=== PATIENT | female | born 2000 | race Caucasian/White ===

== ENCOUNTER 2024-11-28 10:04 | Outpatient (AMB) | payer OTHER, MEDICAID, SELFPAY ==
--- NOTE | 2024-11-28 10:12 | MHC.OFFVIS ---
Vital Signs 11/28/24 10:16 Height 4 ft 11.25 in Weight 200 lb 6.403 oz BMI 40.1 BP 130/70 Blood Pressure Location Rt brachial Position Sitting Pulse 100 Pulse Source Pulse Oximeter Pulse Oximetry (%) 99 Oxygen Delivery Method Room Air Intake Visit Reasons: multiple joint pain Intake Note: Patient presents for joint pain Accompanied by: Self / Same As Patient Allergies topiramate (From Topamax) Allergy (Intermediate, Verified 11/28/24 10:18) memory sulfa Allergy (Intermediate, Uncoded 11/28/24 10:18) Hives HPI HPI multiple joint pain: Details: New patient visit. Patient is concerned about POTS, EDS and chronic neck pain. She has been having having chronic neck pain for a year. It got worse with 3 months of treatment with chiropractor who performed manipulation. She was given a TENs unit to use at home but has not used it because she is not confident using it. She is starting PT and acupuncture next week. X-ray c spine 2 weeks ago did not reveal bone pathology per patient report but I do not have formal report. Tizanidine 2mg qhs helps with relaxation but she has pain daily. If she has a good day, she has increase pain at the end of the a work shift. She has nocturnal pain and wakes up crying. Heat pack and stretching helps. She is a College student. 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 She is unable to do shifts more than 5 hours. Increase pain with shifts up to 8 hours. Bruise easily since childhood. Has intermittent numbness in R arms, L leg and in between shoulder blades. She gets dizzy when reaching up and moving fast when getting up. She has increased her high duration and has been taking Hydrea drops, which has improved dizziness substantially. She also has chest pain with palpitations. She mentioned these symptoms per PCP who attributed them to anxiety. She was able to move her right hip in and out of the socket when she was young. She has had hx acute hip pain when she dances in musical. 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 Her mother manually adjusted her elbow. No hx of uterus prolapse. No . No valvular disease. She has orthostatic hypotension diagnosed at age 15 when she saw a accounts receivable coordinator. She has not followed up with accounts receivable coordinator after that visit. She wears compression stockings to work. Finger tips turn purple triggered by cold. It can occur in the top of her toes when she is sitting too long in one place and is cold. Self resolving. Onset childhood. She also has been experiencing fatigue, blurry vision occasionally in the morning, denies hearing loss, nosebleeds, dryness in nose, oral ulcers, dry mouth, dry eyes, pleurisy, heartburn, difficulty swallowing, urinary symptoms including frothy urine, rash, hair loss, miscarriages. She reports a PCP ordered labs and that she received a message that there is no concern for connective tissue disease. Hx of genetic liver condition. Medication list and medical problems reviewed with patient. Her mother has fibromyalgia. Physical Exam Vital Signs: Last Vital Signs Pulse 100 11/28/24 10:16 BP 130/70 11/28/24 10:16 Pulse Ox 99 11/28/24 10:16 Oxygen Delivery Method Room Air 11/28/24 10:16 BMI result Body Mass Index 40.1 Const Other: General: Comfortable CVS: RRR Respiratory: clear to auscultation bilaterally. Good respiratory effort Skin: No lesions seen, a couple of her tips of her toes have bluish tinge. She does not have digital ulcers. She has bruises on her legs. MSK: No tender joints. No synovitis. Normal range of motion of upper extremities, lower extremities and C-spine. She localizes her pain to 2 points on her trapezius and the base of her occiput but I am unable to reproduce the pain. Beighton score: ?Passive dorsiflexion and hyperextension of the fifth MCP joint beyond 90? 0 0 2. Passive apposition of the thumb to the flexor aspect of the forearm 0 0 3. Passive hyperextension of the elbow beyond 10? 0 0 4. Passive hyperextension of the knee beyond 10? 0 0 5. Active forward flexion of the trunk with the knees fully extended so that the palms of the hands rest flat on the floor 0 TOTAL 0 Assessment & Plan Assessment & Plan (1) Raynaud disease without gangrene: Comment: Conservatively managed. We discussed that her Raynaud's syndrome with onset during childhood is likely primary. She does not have any other signs or symptoms suggestive of systemic connective tissue disease at this time. Code(s): I73.00 - Raynaud's syndrome without gangrene Category: Medical Plan: Continue conservative management for Raynaud's phenomenon with warming and wearing gloves. We discussed importance of wearing appropriate clothing with keeping in mind to keep her core warm at all times to control Raynaud's syndrome. Follow up with PCP for evaluation and management of chest pain/palpitations. No further rheumatological workup is needed at this time Return to clinic PRN (2) Chronic neck pain: Comment: Likely due to myofascial strain based on location of pain at the base of the occipital and trapezius. We discussed conservative management. Code(s): M54.2 - Cervicalgia; G89.29 - Other chronic pain Category: Medical Plan: She will be starting physical therapy next week I have asked her to bring her TENs unit to PT for training to use at home Continue to apply heat to neck Continue tizanidine 2 mg q.h.s. prn neck pain. We discussed the issue of dependence that occurs with long-term muscle relaxer use. She will use it only when needed. PCP follow-up. Consider adjunct therapy with NSAID +/- acetaminophen if she has persistent pain Coding Level of Care Code New Pt Level 4 (88405) Diagnoses Raynaud disease without gangrene I73.00 Chronic neck pain M54.2; G89.29
[2024-11-28 10:16] VITALS: BP 130/70; PULSE 100; O2SAT 99; BMI 40.1
--- OUTSIDE RECORDS SUMMARY | 2024-11-28 11:52 | XMS_ITS | Clinical Summary ---
Author Organization [facility] Address [address] [place] [id number] Phone Care Team Providers Care Farrowing Manager Name Role Phone LeandroBarbara mason SEREEN Primary Care Provider [phone] Allergies Active Allergy Reactions Criticality Noted Date Comments Lactose Intolerance (Gi) Sulfa Antibiotics Medications Cetirizine HCl 10 MG capsule Take by mouth. 5 Active MELATONIN PO Melatonin; 0; 04/03/2015; Active 6 Active Multiple Vitamin (MULTIVITAMINS PO) Multivitamins; 0; 10/08/2016; Active 7 Active traZODone 50 MG tablet 2 8 Active SELENIUM SULFIDE 2.25 % shampooIndication s:Dandruff APPLY 1 OZ TOPICALLY 2 (TWO) TIMES A WEEK. 180 mL 3 9 Active hydrOXYzine 25 MG capsule TAKE 2 CAPSULES BY MOUTH AT BEDTIME AND 1 CAPSULE EVERY NEEDED 0 8 Active Lactobacillus Rhamnosus, GG, (CULTURELLE PO) Take by mouth. Active lamoTRIgine 150 MG tablet TAKE 1 TABLET BY MOUTH EVERY DAY AT NIGHT 0 0 Active econazole nitrate 1 % cream PLEASE SEE ATTACHED FOR DETAILED DIRECTIONS 3 0 Active tretinoin 0.025 % cream PLEASE SEE ATTACHED FOR DETAILED DIRECTIONS 3 0 Active nystatin powder APPLY TO THE GROIN AREA DAILY AFTER SHOWERS 3 0 Active montelukast 10 MG tabletIndications :Seasonal allergic rhinitis due to other allergic trigger TAKE 1 TAB BY MOUTH AT NIGHT 90 tablet 3 0 Active hydrocortisone 1 % ointmentIndicatio ns:Cystic acne vulgaris Apply topically 2 (two) times a day as needed for rash. 25 g 1 1 Active hyoscyamine 0.375 MG 12 hr tablet Take 37.5 mg by mouth every 12 (twelve) hours. 1 Active albuterol HFA 108 (90 Base) MCG/ACT inhalerIndication s:Mild intermittent asthma, unspecified whether complicated Inhale 2 puffs every 4 (four) hours as needed for wheezing or shortness of breath. 1 Units 3 Active Beclomethasone Diprop HFA (Qvar RediHaler) 80 MCG/ACT aerosolIndication s:Moderate persistent asthma without complication TAKE 1 PUFF BY MOUTH 2 TIMES DAILY 10.6 g 2 3 Active omeprazole 20 MG delayed-release capsuleIndication s:Irritable bowel syndrome with both constipation and diarrhea TAKE 1 CAP BY MOUTH DAILY 1 HOUR PRIOR TO EATING 90 capsule 1 3 Active clindamycin 1 % lotion APPLY TO THE INFLAMED LESIONS ON THE FACE IN THE MORNING 3 Active desogestrel-ethin yl estradiol (Kariva) 0.15-0.02/0.01 MG (12/07) per tabletIndications :Encounter for surveillance of contraceptive pills TAKE 1 TABLET BY MOUTH EVERY DAY 84 tablet 4 Active Active Problems Problem Noted Date Diagnosed Date BMI 33.0-33.9,adult 01/29/2021 Assessment & Plan (03/11/2022 8:22 AM EST): Discussed concerns regarding weight Reviewed medical terminologist potential health risks associated with obesity Discussed dietary changes, portion sizes, limiting snacks, and encouraged healthier options Agree with her plan of cutting back on sugar and carbs Also reviewed importance of daily aerobic activity Will check routine screening labs today Assessment & Plan (01/29/2021 9:37 AM EST): Discussed concerns regarding weight Reviewed half-way potential health risks associated with obesity Discussed dietary changes, portion sizes, limiting snacks, and encouraged healthier options Also reviewed importance of daily aerobic activity Tiredness 01/29/2021 Assessment & Plan (01/29/2021 9:38 AM EST): Irregular sleep/nap patterns likely impacting energy levels Encouraged going to bed at the same time every night Aim for 8-9 hours of sleep/night Avoid daytime napping Encourage daily aerobic exercise Seasonal allergic rhinitis due to pollen 021 Assessment & Plan (01/29/2021 9:36 AM EST): Zyrtec daily Followed by fusing machine operator Assessment & Plan (08/12/2020 10:44 AM EDT): Continue with zyrtec. UNable to take flonase, makes her gag. Might want to do allergy testing in the future. Mild intermittent asthma 08/12/2020 Assessment & Plan (03/11/2022 8:21 AM EST): Followed by pulmonology Due for f/u visit, encourage she schedule this as ACT score is positive Currently using qvar and singulair daily, albuterol prn Assessment & Plan (01/29/2021 9:36 AM EST): Followed by fusing machine operator/metal model maker Taking qvar BID, singulair daily, and advised to take albuterol daily to help increase lung function Assessment & Plan (08/12/2020 10:45 AM EDT): Might be reacting to cleaning solutions at work. Use the qvar daily (not every 3 days), and do it twice a day for the next 2 months. F/u if worsening. Vaginal discharge 08/12/2020 Assessment & Plan (08/12/2020 10:46 AM EDT): Not sexual transmitted, intermittent, probably related to periods. Mother to make appt with OBGYN. Autism disorder 10/12/2017 Assessment & Plan (11/12/2019 5:55 PM EDT): Stable on medication prescribed by psychiatrist Mood disorder 10/12/2017 Overview (10/12/2017): Followed by therapist and med provider. Stable on current medication. Assessment & Plan (03/11/2022 8:21 AM EST): Followed by therapist and med provider through [facility] Assessment & Plan (01/29/2021 9:36 AM EST): Followed by psychiatry Dr. Noreen Sargent at [facility] Weekly therapy as well Oppositional defiant disorder 09/28/2014 Overview (10/12/2017): ODD (313.81) Onset: 09/28/2014 Added by: Sallie Herron Other acne 06/28/2014 Overview (10/12/2017): Acne (706.1) Onset: 06/28/2014 Added by: Regina Parsons Immunizations Immunization Administration Dates Next Due DTaP 5 10/21/2004, 1,1999,07/06,1999 HPV Vaccine 9 Valent 03/10/2022 Hep A, ped/adol 12/06/2014,06/06/2014 Hep B, ped/adol 07/22/2000,1999,1999 Hib (PRP-T) 07/22/2000, 0,1999,05/04 IPV 10/21/2004, 1,1999,05/04 Influenza, injectable, quadrivalent 03/10/2022 Influenza, injectable, quadr ivalent, preservative free 01/29/2021,10/26/2018,12/06/2014 Influenza, injectable, trivalent 11/20/2013 Influenza, injectable, triva lent, preservative free 03/09/2011 MMR 10/21/2004,03/23/2000 Meningococcal Conj (Menactra) MCV4P 06/13/2015,0 03/09/2011 Pneumococcal Conjugate 07/22/2000,03/23/2000,01/2000 Tdap 03/09/2011 Varicella 12/30/2006,03/23/2000 Family History Medical History Relation Name Comments ADD / ADHD Brother Lamont Anxiety disorder Brother Lamont Bipolar disorder Brother Lamont ADD / ADHD Father peyton Anxiety disorder Father peyton Depression Father peyton Relation Name Status Comments Brother Lamont Alive Father peyton Alive Mother liudmila Alive Social History Tobacco Use Types Packs/Day Years Used Date Smoking Tobacco: Never Alcohol Use Standard Drinks/Week Comments No 0 (1 standard drink = 0.6 oz pur e alcohol) Hunger/Food Answer Date Recorded In the last 12 months, did y ou or your family ever eat less than you felt you should because there wasn't enough money for food? No 03/10/2022 Stable Housing Answer Date Recorded Are you worried that in the next 2 months you may not have stable housing? No 03/10/2022 Transportation Concerns Answer Date Rec orded In the last 12 months, have you or your family ever had to go without healthcare because you didn't have a way to get there? No 03/10/2022 Hazards in Home Answer Date Recorded Think about the place you li ve. Do you have problems with any of the following? Pests (mice or roaches), mold, no/not working smoke detectors, water leaks, no window guards. No 2022 Financing Utilities Answer Date Recorde d In the last 12 months, has t he electric, gas, oil, or water company threatened to shut off your services in your home? No 03/10/2022 Safety at Home Answer Date Recorded Are you or your family worried about feeling saf e in your home? No 03/10/2022 Outside Support Answer Date Recorded Do you feel that you need mo re support from other people or programs to help you care for yourself or your family? No 03/10/2022 Understanding Health Concerns Answer Da te Recorded Do you need help understandi ng your or your child's healthcare needs (diagnosis, medications, plan, etc.)? No 03/10/2022 Financing Health Concerns Answer Date R ecorded In the last 12 months, was t here a time when your child needed to see a doctor or get medications or supplies but could not because of cost? No 03/10/2022 Missing School or Work Answer Date Pavel rded Did you or your child miss s chool or work because of a health problem that could have been avoided? No 03/10/2022 Comments Unknown Sex and Gender Information Value Date Recorded Sex Assigned at Not on file Legal Sex Female 6:19 PM EDT Gender Identity Female 11/06/2019 1:15 PM EDT Sexual Orientation Straight 10/26/2018 5: 56 PM EDT Last Filed Vital Signs Vital Sign Reading Time Taken Comments Blood Pressure 126/68 03/10/2022 2:40 PM EST Pulse 84 03/10/2022 2:40 PM EST Temperature 36.4 C (97.6 F) 03/10/2022 2:40 PM EST Respiratory Rate - - Oxygen Saturation 99% 11/25/2015 5:17 PM EDT Inhaled Oxygen Concentration - - Weight 87.3 kg (192 lb 8 oz) 03/10/2022 2:40 PM EST Height 151.5 cm (4' 11.65 ) 03/10/2022 2:[address] Body Mass Index 38.04 03/10/2022 2:40 PM EST Plan of Treatment Health Maintenance Due Date Last Done Comments DTaP,Tdap,and Td Vaccines (7 - Td or Tdap) 03/09/2021 03/09/2011, 10/21/2004, 09/10/2000, Additional history exists HPV Vaccines (2 - 3-dose series) 04/07/2022 03/10/2022 Influenza Vaccines (#1) 2024 03/10/19 23, 01/29/2021, 10/26/2018, Additional history exists COVID-19 Vaccine ( season) 2024 02/05/2021, 06/26/2020, 06/05/2020 HIB Vaccines Completed 07/22/2000, 10/1999, 1999, Additional history exists Hepatitis B Vaccines Completed 07/22/2000, 1999, 1999 Pneumococcal Vaccine Completed 07/22/2000, 03/23/2000, 1999 IPV Vaccines Completed 10/21/2004, 07/, 1999, Additional history exists MMR Vaccines Completed 10/21/2004, 03/23/2000 Varicella Vaccines Completed 12/30/2006, 03/23/2000 Hepatitis A Vaccines Completed 12/06/2014, 06/07/19 15 Meningococcal Vaccine Completed 06/13/2015, 012 Men B Vaccine Aged Out No longer elig margoth based on patient's age to complete this topic Procedures * Due to [facility] law, this organization might not be sharing sensitive test results. Procedure Name Priority Date/Time Associated Diagnosis Comments CHLAMYDIA GC AMP PROBE Routine 03/10/2022 3:42 PM EST Encounter for screening examination for sexually transmitted disease from Last 3 Months or Most Recently Relevant to Health Maintenance Results * Due to [place] [employer] law, this organization might not be sharing sensitive test results. * Chlamydia and Gonorrhoea, Amplified (Vagina) (03/10/2022 3:42 PM EST) Chlamydia Trachomatis, Amplified NEGATIVE (NEG) [facility] Comment: No Chlamydia Trachomatis RNA detected in this patient's sample (REFERENCE RANGE/NORMAL VALUE: NOT DETECTED) Note: This test uses electronic technician- mediated amplification method to detect rRNA from C. Trachomatis N.GONORRHOEAE AMP PROBE NEGATIVE (NEG) [facility] Comment: No Neisseria Gonorrhoeae RNA detected in this patient's sample (REFERENCE RANGE/NORMAL VALUE: NOT DETECTED) NOTE: This test uses electronic technician-mediated amplification method to detect rRNA from N.Gonorrhoeae. A negative result does not preclude infection. In the case of a negative urine result, testing of an endocervical(female) or urethral (male) specimen is recommended if there is high clinical suspicion of infection. Due to very high sensitivity of Nucleic Acid Amplification Test, false positive results may occur. Therefore, specimen handling is extremely important. In patients in whom the disease is unlikely, additional sample for testing should be considered after an initial positive result. The performance characteristics of this test have not been evaluated in children. The Aptima Combo2 assay is not intended for the evaluation of suspected sexual abuse or for other medico-legal indications. The ordering provider should assess if the patient had consensual sex without risk of sexual abuse. Consult the [facility] if needed. Contact phone number . Therapeutic failure or success cannot be determined with the Aptima Combo2 assay since nucleic acid may persist following appropriate antimicrobial therapy. The Centers for Disease Control and Prevention (CDC) recommends confirmatory retesting using culture or a different nucleic acid amplification test when positive results occur, if indicated. CHLAM/GC AMP PROBE SPEC TYPE VAGINAL SPECIMEN [facility] Comment: Testing performed or reported by [facility], a Service of [facility], [facility] [place] [address] Esteban Del Real MD, Business Planning Director [facility]# [id number] Swab (Vagina) 03/10/2022 3:4 2 PM EST 03/12/2022 11:49 AM EST Barbara Marinelli NP LAB MICROBIOLOGY - GENERAL ORDER THOMAS Final Result [facility] from Last 3 Months or Most Recently Relevant to Health Maintenance Insurance [facility] [id number] Care Teams Farrowing Manager Relationship Specialty Start Date End Date Barbara Marinelli NP [address] [place] [address] PCP - General Pediatrics 08/14/21
--- OUTSIDE RECORDS SUMMARY | 2024-11-28 11:52 | XMS_ITS | Encounter Summary ---
Author Organization [facility] Address [address] [place] [id number] Phone Care Team Providers Care Slitter And Cutter Operator Name Role Phone Yves Barbara SERENE Primary Care Provider [phone] Reason for Visit * Reason Comments Med Refill Encounter Details Date Type Department Care Team (Late st Contact Info) Description 01/15/2021 Refill [facility] [address] [place] [address] [place] [address] Kurt Serna MD [address] [place] [address] [place] [id number] Encounter for surveillance of contraceptive pills Social History Tobacco Use Types Packs/Day Years Used Date Smoking Tobacco: Never Alcohol Use Standard Drinks/Week Comments No 0 (1 standard drink = 0.6 oz pur e alcohol) Hunger/Food Answer Date Recorded In the last 12 months, did y ou or your family ever eat less than you felt you should because there wasn't enough money for food? No 11/06/2019 Stable Housing Answer Date Recorded Are you worried that in the next 2 months you may not have stable housing? No 11/06/2019 Transportation Concerns Answer Date Rec orded In the last 12 months, have you or your family ever had to go without healthcare because you didn't have a way to get there? No 11/06/2019 Hazards in Home Answer Date Recorded Think about the place you li ve. Do you have problems with any of the following? Pests (mice or roaches), mold, no/not working smoke detectors, water leaks, no window guards. No 2019 Financing Utilities Answer Date Recorde d In the last 12 months, has t he electric, gas, oil, or water company threatened to shut off your services in your home? No 11/06/2019 Safety at Home Answer Date Recorded Are you or your family worried about feeling saf e in your home? No 11/06/2019 Outside Support Answer Date Recorded Do you feel that you need mo re support from other people or programs to help you care for yourself or your family? No 11/06/2019 Understanding Health Concerns Answer Da te Recorded Do you need help understandi ng your or your child's healthcare needs (diagnosis, medications, plan, etc.)? No 11/06/2019 Financing Health Concerns Answer Date R ecorded In the last 12 months, was t here a time when your child needed to see a doctor or get medications or supplies but could not because of cost? No 11/06/2019 Missing School or Work Answer Date Pavel rded Did you or your child miss s chool or work because of a health problem that could have been avoided? No 11/06/2019 Comments Unknown Sex and Gender Information Value Date Recorded Sex Assigned at Not on file Legal Sex Female 6:19 PM EDT Gender Identity Female 11/06/2019 1:15 PM EDT Sexual Orientation Straight 10/26/2018 5: 56 PM EDT documented as of this encounter Miscellaneous Notes * Telephone Encounter - Michelle Medeiros MA - 01/15/2021 8:22 AM EST [facility] scheduled 01/29/[address] Antonio absence documented in this encounter Plan of Treatment Not on file documented as of this encounter Visit Diagnoses Diagnosis Encounter for surveillance of contraceptive pills documented in this encounter Care Teams Slitter And Cutter Operator Relationship Specialty Start Date End Date Barbara Marinelli NP [address] [place] [address] PCP - General Pediatrics 08/14/21 documented as of this encounter
--- OUTSIDE RECORDS SUMMARY | 2024-11-28 11:52 | XMS_ITS | Encounter Summary ---
Author Organization [facility] Address [address] [place] [id number] Phone Care Team Providers Care Quartz Mounter Name Role Phone LeandroBarbara mason SERENE Primary Care Provider [phone] Reason for Visit * Reason Comments Med Refill Encounter Details Date Type Department Care Team (Late st Contact Info) Description 10/29/2019 Refill [facility] [address] [place] [address] Sallie Herron DO Seasonal allergic rhinitis due to other allergic trigger Social History Tobacco Use Types Packs/Day Years Used Date Smoking Tobacco: Never Alcohol Use Standard Drinks/Week Comments No 0 (1 standard drink = 0.6 oz pur e alcohol) Hunger/Food Answer Date Recorded No 10/26/2018 Stable Housing Answer Date Recorded No 02/25/2019 Transportation Concerns Answer Date Rec orded No 10/26/2018 Hazards in Home Answer Date Recorded No 10/26/2018 Financing Utilities Answer Date Recorde d No 10/26/2018 Safety at Home Answer Date Recorded No 10/26/2018 Outside Support Answer Date Recorded No 10/26/2018 Understanding Health Concerns Answer Da te Recorded No 10/26/2018 Financing Health Concerns Answer Date R ecorded No 10/26/2018 Missing School or Work Answer Date Pavel rded No 10/26/2018 Comments Unknown Sex and Gender Information Value Date Recorded Sex Assigned at Not on file Legal Sex Female 6:19 PM EDT Gender Identity Female 11/06/2019 1:15 PM EDT Sexual Orientation Straight 10/26/2018 5: 56 PM EDT documented as of this encounter Plan of Treatment Not on file documented as of this encounter Visit Diagnoses Diagnosis Seasonal allergic rhinitis due to other allergic trigger documented in this encounter Care Teams Quartz Mounter Relationship Specialty Start Date End Date Babrara Marinelli NP [address] [place] [address] PCP - General Pediatrics 08/14/21 documented as of this encounter
--- OUTSIDE RECORDS SUMMARY | 2024-11-28 11:52 | XMS_ITS | Encounter Summary ---
Author Organization [facility] Address [address] [place] [address] Phone Care Team Providers Care Field Marketing Representative Name Role Phone Yves Barbara SERENE Primary Care Provider Reason for Visit * Reason Comments Med Refill Encounter Details Date Type Department Care Team (Late st Contact Info) Description 03/12/2020 Refill [facility] [place] [address] Sallie Herron, Seasonal allergic rhinitis due to other allergic [...] trigger documented in this encounter Care Teams Field Marketing Representative Relationship Specialty Start Date End Date Barbara Marinelli NP [address] [place] [address] PCP - General Pediatrics 08/14/21 documented as of this encounter
--- OUTSIDE RECORDS SUMMARY | 2024-11-28 11:52 | XMS_ITS | Patient Health Record ---
Author Organization [facility] [place] Address [address] [place] [address] Care Team Providers Care Correctional Nurse Name Role Phone Michelle Disla Primary Care Provider Unavailsantos SaldanaJenniffer Unavailable [phone] Allergies Allergen (clinical drug ingredient) Drug/Non Drug Allergy documented on EMR Reaction Allergy Type Onset Date Status sulfamethoxazole / trimethoprim Bactrim rash Drug Allergy Active Codeine Phosphate Unknown Drug Allergy Active meperidine Demerol Unknown Drug Allergy Active Adhesive Unknown Allergy Active Reason For Referral No Information Medications Medication SIG (Take, Route, Fr equency, Duration) Notes Start Date End Date Status Hyoscyamine Active Cephalexin 500 MG 1 capsule Orally leia ry 12 hrs; Duration: 10 days Active lamoTRIgine 150 MG 1 tablet Orally Once a day Active traZODone HCl 50 MG as directed Orally Active Loratadine Active Albuterol Active Eaton Not-Taking LORazepam Not-Taking Montelukast Sodium A ctive Vyvanse Not-Taking Qvar Active Melatonin Not-Taking hydrOXYzine HCl Acti ve Singulair Not-Taking Omeprazole Active Keflex 500 MG 1 capsule Orally leia ry 12 hrs; Duration: 10 day(s) 12/08/2018 Not-Jerson ing Social History Tobacco Use: Social History Observation Description Date Details (start date - stop date) Never Smoker NA - NA Tobacco Use/Smoking Question Answer Notes Are you a: nonsmoker Additional Findings: Tobacco Non-User Current no n-smoker Alcohol Screen Question Answer Notes Did you have a drink containing alcohol in the p ast year? No Points 0 Interpretation Negative Tobacco use other than smoking: Question Answer Notes Are you an other tobacco user? No Problems No Known Problems Plan Of Treatment Pending Test Test Name Order Date [id number] 12/08/2018 Insurance Providers Payer Name Payer Address Payer Phone Subscriber Number Group Number Insured Name Patient Relationship to Insured Coverage Start Date Coverage End Date [facility] [address] [facility] RADHA cruz [id number] Liudmila Silva Child - Insured has Financial Responsibility Medical (General) History Medical History History ICD Code Anxiety asthma Back,Hip,and Knee pain Headaches/Migraines raynauds disease Autism covid-19 Depression Reflux ( GERD) Surgical History Surgery Date(Month/Year) wisdom teeth extraction
--- OUTSIDE RECORDS SUMMARY | 2024-11-28 11:52 | XMS_ITS | Encounter Summary ---
Author Organization [facility] Address [address] [place] [id number] Phone Care Team Providers Care Operations Logistics Analyst Name Role Phone Barbara Marinelli NP Primary Care Provider [phone] Encounter Details Date Type Department Care Team (Late st Contact Info) Description 08/19/2010 Conversion Encounter [facility] [address] [place] [address] Social History Tobacco Use Types Packs/Day Years Used Date Smoking Tobacco: Never Assessed Comments Unknown Sex and Gender Information Value Date Recorded Sex Assigned at Not on file Legal Sex Female 6:19 PM EDT Gender Identity Female 11/06/2019 1:15 PM EDT Sexual Orientation Straight 10/26/2018 5: 56 PM EDT documented as of this encounter Plan of Treatment Not on file documented as of this encounter Visit Diagnoses Not on filedocumented in this encounter Care Teams Operations Logistics Analyst Relationship Specialty Start Date End Date Barbara Marinelli NP [address] [place] [address] PCP - General Pediatrics 08/14/21 documented as of this encounter
== END 2024-11-28 11:35 | disposition home or self-care (01) ==
LOC: HO.RHES 10:04
PROVIDERS: PCP Pediatrics; Visit Provider Internal Medicine Rheumatology
DX: I73.00 Raynaud's syndrome without gangrene (principal); M54.2 Cervicalgia; G89.29 Other chronic pain
CPT/HCPCS: 99204